=== PATIENT | male | born 1995 | race Caucasian/White ===

== ENCOUNTER 2018-08-17 20:42 | Emergency (ER) | payer SELFPAY ==
[~2018-08-17] VITALS: Ht 170.2 cm; Wt 86.0 kg
[~2018-08-17 20:42] MED LIST: CHLO25CA10 PO; CIPR7.5D2 RIGHT EAR; DOCU-148 PO; LOPE2CAP PO; MAGN296S68 CORPAK; NO HOME MEDS; ONDA4TAB11 PO; ONDA4TAB6 PO
[2018-08-17 20:43] VITALS: BP 156/83
[2018-08-17] MEDS ORDERED: ceFAZolin 1000mg inj IV ONE (20:50)
[2018-08-17] MEDS ORDERED: TETanus/Pertussis (Acell)/Diphther VAC/PF (Tdap-Adult) 0.5ml syringe IM ONE (20:50)
[2018-08-17] MEDS ORDERED: normal saline 1000ML IV soln IVB ONE (20:50)
[2018-08-17] MEDS ORDERED: ondansetron/PF 4mg/2ml inj IV ONE (20:50)
[2018-08-17] MEDS ORDERED: LORazepam 2 mg/ml vial IV ONE (20:50)
[2018-08-17] MEDS ORDERED: LIDOcaine 1% w/epiNEPHrine 1:200,000 30ml vial IM ONE (20:50)
[2018-08-17] MEDS ORDERED: cefazolin/dext.iso 2gm/100ml 100 ML IV ONE (21:05)
[2018-08-17 22:53] LABS: URINE AMPHETAMINE SCREEN POSITIVE (Neg); URINE BARBITUATE SCREEN NEGATIVE (Neg); URINE BENZODIAZEPINES SCREEN POSITIVE (Neg); URINE CANNABINOID SCREEN POSITIVE (Neg); URINE COCAINE SCREEN NEGATIVE (Neg); URINE METHADONE SCREEN NEGATIVE (Neg); URINE OPIATE SCREEN POSITIVE (Neg); URINE PHENCYCLIDINE SCREEN NEGATIVE (Neg)
[2018-08-17] MEDS ORDERED: mupirocin 2% ointment 22GM TP STA (23:01)
[2018-08-17] MEDS ORDERED: AMOX-580 PO (23:21)
[2018-09-02] MEDS ORDERED: DOXY100C2 PO (18:01)
[2018-09-02] MEDS ORDERED: IBUP-1985 PO (18:01)
[2018-09-02] MEDS ORDERED: POLY17PO10 PO (18:01)
[2018-09-02] MEDS ORDERED: ACET-2119 PO (18:01)
== END 2018-08-17 23:31 ==
LOC: ER 20:43 → MERGE 20:43 → EDBD 20:43 → ER 23:31
DX: S41.051A Open bite of right shoulder, initial encounter (principal); S81.851A Open bite, right lower leg, initial encounter; F23 Brief psychotic disorder; F15.10 Other stimulant abuse, uncomplicated; F11.10 Opioid abuse, uncomplicated; F12.90 Cannabis use, unspecified, uncomplicated; Z79.2 Long term (current) use of antibiotics; W54.0XXA Bitten by dog, initial encounter; Y93.89 Activity, other specified; Y92.89 Other specified places as the place of occurrence of the external cause; Y99.8 Other external cause status
CPT/HCPCS: 12007; 36415; 73590; 80305; 80320; 90471; 90715; 96365; 96375; 99284; J2060; J2405; J7030; 96374; J0690

== ENCOUNTER 2018-08-22 11:27 | Emergency (ER) | payer SELFPAY ==
[~2018-08-22] VITALS: Ht 182.9 cm; Wt 85.9 kg
[2018-08-22 11:28] VITALS: BP 132/76
--- NOTE | 2018-08-22 13:00 | NUR ---
PT CALLED TO ER X3 WITH PT NIL. PROVIDER NOTIFIED, NO FURTHER ACTION REQUIRED PER PROVIDER
== END 2018-08-22 13:00 | disposition left against medical advice (07) ==
LOC: ER 11:27
DX: M54.5 Low back pain (principal); M79.642 Pain in left hand; M79.604 Pain in right leg; Z53.21 Procedure and treatment not carried out due to patient leaving prior to being seen by health care provider